=== PATIENT | female | born 1985 | race Caucasian/White ===

== ENCOUNTER 2017-07-08 10:29 | Emergency (ER) | payer OTHER ==
[~2017-07-08] VITALS: Ht 170.2 cm; Wt 72.1 kg
[~2017-07-08 10:29] MED LIST: ALPR-475 PO; CHOL5000 PO; DOCU-131 PO; ESCI20TA10 PO; HYDR-3237 PO; IBUP-1222 PO; LORA-446 PO; MULT-26 PO; NITR100C6 PO; OMEP10CA4 PO; ONDA4TAB13 PO
[2017-07-08 11:16] LABS: HCG UR LOT HCG7030192
[2017-07-08 11:25] LABS: HEMATOCRIT 29.9 % (34.6-47.8); HEMOGLOBIN 10.5 g/dL (11.7-16.4)
[2017-07-08 11:31] LABS: ASPARTATE AMINO TRANSFERASE 355 U/L (15-37); BLOOD UREA NITROGEN 11 mg/dL (7-18)
[2017-07-08] MEDS ORDERED: SERT50TA PO (11:33)
[2017-07-08 11:44] LABS: HCG UR OBC PASS
[2017-07-08] MEDS ORDERED: morphine SULFATE 10 MG/ML, 1ML ONE (12:18)
[2017-07-08] MEDS ORDERED: morphine SULFATE 10 MG/ML, 1ML IVPush ONE (12:30)
[2017-07-08 13:40] VITALS: BP 90/57
== END 2017-07-08 13:51 | disposition home or self-care (01) ==
LOC: ED 10:50
DX: H54.3 Unqualified visual loss, both eyes (principal); R10.84 Generalized abdominal pain; D68.4 Acquired coagulation factor deficiency; D64.9 Anemia, unspecified; E83.51 Hypocalcemia; E16.2 Hypoglycemia, unspecified; R17 Unspecified jaundice; E87.1 Hypo-osmolality and hyponatremia; K21.9 Gastro-esophageal reflux disease without esophagitis; Z90.49 Acquired absence of other specified parts of digestive tract; Z90.710 Acquired absence of both cervix and uterus
CPT/HCPCS: 36415; 70450; 80053; 81001; 81025; 83690; 85025; 85610; 87086; 96374; 99285; J2270

== ENCOUNTER 2017-07-13 15:37 | Inpatient (IN) | payer OTHER ==
[~2017-07-13] VITALS: Ht 170.2 cm; Wt 87.5 kg
[~2017-07-13 15:37] MED LIST changes: +SERT50TA PO
[2017-07-13] MEDS ORDERED: ONDANSETRON 2MG/ML, 2ML IVPush ONE (16:00)
[2017-07-13] MEDS ORDERED: SODIUM CHLORIDE 0.9% 1,000ML IVBOLUS ONE ×2 (16:00→21:00)
[2017-07-13 16:30] LABS: HEMATOCRIT 27.1 % (34.6-47.8); HEMOGLOBIN 9.5 g/dL (11.7-16.4); WHITE BLOOD COUNT 7.8 x10^3/uL (3.4-10)
[2017-07-13 16:36] LABS: BLOOD UREA NITROGEN 25 mg/dL (7-18)
[2017-07-13 16:40] LABS: ASPARTATE AMINO TRANSFERASE 126 U/L (15-37)
[2017-07-13] MEDS: PANTOPRAZOLE 80 MG in SODIUM CHLORIDE 0.9% 50 ML IVPB ONE ×2 (17:11→20:29)
[2017-07-13] MEDS: PANTOPRAZOLE 80 MG in SODIUM CHLORIDE 0.9% 100 ML IV SCH ×3 (17:11→22:00)
[2017-07-13] MEDS ORDERED: morphine SULFATE 10 MG/ML, 1ML ONE (17:17)
[2017-07-13] MEDS ORDERED: ONDANSETRON 2MG/ML, 2ML ONE (17:18)
[2017-07-13] MEDS ORDERED: MORPHINE SULFATE 4 MG/ML, 1ML IVPush ONE (17:30)
[2017-07-13 18:25] LABS: FERRITIN 1733.8 ng/mL (8-252); TOTAL IRON BINDING CAPACITY 70 mcg/dL (250-450)
[2017-07-13 18:46] LABS: ACETAMINOPHEN 17 mcg/mL (10-30)
[2017-07-13] MEDS: SODIUM CHLORIDE 0.9% 1,000 ML IV SCH ×4 (19:03→23:37)
[2017-07-13 19:15] VITALS: BP 90/48
[2017-07-13] MEDS ORDERED: HEPARIN 5,000 UNITS/ML, 1ML SQ SCH (19:30)
[2017-07-13] MEDS ORDERED: ACETAMINOPHEN 325 MG TABLET PO PRN (19:30)
[2017-07-13] MEDS: LORazepam 1MG TABLET PO PRN (19:48)
[2017-07-13] MEDS ORDERED: ALBUMIN HUMAN 5% 250 ML IV ONE (21:00)
[2017-07-13] MEDS ORDERED: PHYTONADIONE 10 MG/ML, 1ML SQ ONE (21:00)
[2017-07-13] MEDS: CEFDINIR 300 MG CAPSULE PO SCH (21:50)
[2017-07-13] MEDS: morphine SULFATE 10 MG/ML, 1ML IVPush PRN (22:32)
[2017-07-14] MEDS: prednisOLONE 15 MG/5 ML ORAL SOLN PO SCH ×2 (00:34→08:04)
[2017-07-14 00:38] VITALS: BP 90/49
[2017-07-14] MEDS: morphine SULFATE 10 MG/ML, 1ML IVPush PRN ×3 (03:17→13:14)
[2017-07-14 05:36] LABS: HEMOGLOBIN 7.4 g/dL (11.7-16.4); WHITE BLOOD COUNT 3.1 x10^3/uL (3.4-10)
[2017-07-14 05:41] LABS: BLOOD UREA NITROGEN 22 mg/dL (7-18)
[2017-07-14 05:43] LABS: HEMATOCRIT 21.2 % (34.6-47.8)
[2017-07-14 05:46] LABS: ASPARTATE AMINO TRANSFERASE 87 U/L (15-37)
[2017-07-14] MEDS ORDERED: PANTOPROZOLE 40MG TABLET PO SCH ×2 (07:30)
[2017-07-14] MEDS ORDERED: prednisOLONE 15 MG/5 ML ORAL SOLN PO SCH (08:00)
[2017-07-14] MEDS: ONDANSETRON ODT 4 MG PO PRN ×3 (08:03→19:22)
[2017-07-14] MEDS: CEFDINIR 300 MG CAPSULE PO SCH ×2 (08:03→21:41)
[2017-07-14] MEDS: LORazepam 1MG TABLET PO PRN ×3 (08:03→21:41)
[2017-07-14] MEDS: SODIUM CHLORIDE 0.9% 1,000 ML IV SCH ×2 (08:12→21:43)
[2017-07-14 08:18] VITALS: BP 96/58
[2017-07-14] MEDS: PANTOPRAZOLE 80 MG in SODIUM CHLORIDE 0.9% 100 ML IV SCH ×2 (08:34→18:36)
[2017-07-14] MEDS: THIAMINE 100MG TABLET PO SCH (09:50)
[2017-07-14 14:57] VITALS: BP 95/57
[2017-07-14] MEDS: LACTULOSE 20 GM/30 ML UDC PO SCH ×2 (16:12→21:41)
[2017-07-14 20:00] VITALS: BP 90/54
[2017-07-15 02:05] VITALS: BP 92/48
[2017-07-15] MEDS: SODIUM CHLORIDE 0.9% 1,000 ML IV SCH (05:01)
[2017-07-15] MEDS: PANTOPRAZOLE 80 MG in SODIUM CHLORIDE 0.9% 100 ML IV SCH ×2 (05:01→14:37)
[2017-07-15 06:17] LABS: HEMOGLOBIN 7.3 g/dL (11.7-16.4); WHITE BLOOD COUNT 6.4 x10^3/uL (3.4-10)
[2017-07-15 06:19] LABS: ASPARTATE AMINO TRANSFERASE 75 U/L (15-37); BLOOD UREA NITROGEN 26 mg/dL (7-18)
[2017-07-15 06:33] LABS: HEMATOCRIT 21.9 % (34.6-47.8)
[2017-07-15] MEDS ORDERED: POTASSIUM CHLORIDE 20 MEQ in SODIUM CHLORIDE 0.9% 250 ML IV ONE (07:00)
[2017-07-15 07:11] LABS: ANISOCYTOSIS 1+; TARGET CELLS 1+
[2017-07-15] MEDS: NS + 20MEQ KCL 1,000 ML IV SCH ×2 (07:52→16:44)
[2017-07-15] MEDS: CEFDINIR 300 MG CAPSULE PO SCH ×2 (07:53→21:14)
[2017-07-15] MEDS: THIAMINE 100MG TABLET PO SCH (07:53)
[2017-07-15] MEDS: LACTULOSE 20 GM/30 ML UDC PO SCH ×4 (07:53→21:14)
[2017-07-15] MEDS: prednisOLONE 15 MG/5 ML ORAL SOLN PO SCH (07:53)
[2017-07-15 08:35] VITALS: BP 92/52
[2017-07-15] MEDS: morphine SULFATE 10 MG/ML, 1ML IVPush PRN (09:28)
[2017-07-15] MEDS ORDERED: SODIUM PHOSPHATE 10 MMOL in SODIUM CHLORIDE 0.9% 500 ML IV ONE (09:30)
[2017-07-15 14:59] VITALS: BP 95/58
[2017-07-15 19:08] VITALS: BP 92/60
[2017-07-16] MEDS: NS + 20MEQ KCL 1,000 ML IV SCH ×2 (00:41→13:07)
[2017-07-16] MEDS: LORazepam 1MG TABLET PO PRN (00:41)
[2017-07-16 02:03] VITALS: BP 92/50
[2017-07-16] MEDS: PANTOPRAZOLE 80 MG in SODIUM CHLORIDE 0.9% 100 ML IV SCH ×2 (02:08→13:38)
[2017-07-16] MEDS: LACTULOSE 20 GM/30 ML UDC PO SCH ×4 (05:30→21:12)
[2017-07-16 06:28] LABS: HEMOGLOBIN 7.4 g/dL (11.7-16.4); WHITE BLOOD COUNT 5.3 x10^3/uL (3.4-10)
[2017-07-16 06:35] LABS: HEMATOCRIT 21.5 % (34.6-47.8)
[2017-07-16 06:49] LABS: DIFF TOTAL CELLS COUNTED 100 CELL DIFF
[2017-07-16 06:52] LABS: VERIFY COUNTS? YES
[2017-07-16 06:53] LABS: ANISOCYTOSIS 1+; TARGET CELLS 1+
[2017-07-16 06:58] LABS: BLOOD UREA NITROGEN 26 mg/dL (7-18)
[2017-07-16 07:01] LABS: ASPARTATE AMINO TRANSFERASE 63 U/L (15-37)
[2017-07-16] MEDS ORDERED: POTASSIUM PHOSPHATE 44 MEQ in SODIUM CHLORIDE 0.9% 500 ML IV ONE (08:30)
[2017-07-16 09:40] VITALS: BP 81/49
[2017-07-16] MEDS ORDERED: MIDAZOLAM 1 MG/ML, 5ML ONE (10:38)
[2017-07-16] MEDS ORDERED: FENTANYL PF 100 MCG/2ML ONE (10:38)
[2017-07-16] MEDS ORDERED: DIPHENHYDRAMINE 50 MG/ML, 1ML ONE (10:38)
[2017-07-16] MEDS ORDERED: SODIUM CHLORIDE 0.9%, 500ML IVBOLUS ONE ×2 (12:30→17:00)
[2017-07-16] MEDS: prednisOLONE 15 MG/5 ML ORAL SOLN PO SCH (13:06)
[2017-07-16] MEDS: THIAMINE 100MG TABLET PO SCH (13:07)
[2017-07-16] MEDS: CEFDINIR 300 MG CAPSULE PO SCH ×2 (13:07→21:12)
[2017-07-16 14:14] VITALS: BP 93/56
[2017-07-16 20:13] VITALS: BP_SYST 83; BP_SYST 87; BP_DIAS 46; BP_DIAS 52
[2017-07-17] MEDS: LORazepam 1MG TABLET PO PRN ×3 (00:15→21:48)
[2017-07-17] MEDS: NS + 20MEQ KCL 1,000 ML IV SCH ×3 (00:15→21:14)
[2017-07-17] MEDS: PANTOPRAZOLE 80 MG in SODIUM CHLORIDE 0.9% 100 ML IV SCH ×3 (00:15→21:14)
[2017-07-17 02:00] VITALS: BP 91/52
[2017-07-17] MEDS: morphine SULFATE 10 MG/ML, 1ML IVPush PRN ×2 (02:43→22:17)
[2017-07-17 05:29] LABS: ASPARTATE AMINO TRANSFERASE 60 U/L (15-37); BLOOD UREA NITROGEN 22 mg/dL (7-18)
[2017-07-17 05:39] LABS: HEMOGLOBIN 7.6 g/dL (11.7-16.4); WHITE BLOOD COUNT 4.1 x10^3/uL (3.4-10)
[2017-07-17 05:45] LABS: HEMATOCRIT 21.8 % (34.6-47.8)
[2017-07-17 08:00] VITALS: BP 84/40
[2017-07-17 08:40] VITALS: BP 77/42
[2017-07-17] MEDS ORDERED: SODIUM CHLORIDE 0.9% 1,000ML IVBOLUS ONE (09:00)
[2017-07-17] MEDS: prednisOLONE 15 MG/5 ML ORAL SOLN PO SCH (09:00)
[2017-07-17] MEDS: LACTULOSE 20 GM/30 ML UDC PO SCH ×3 (09:01→21:14)
[2017-07-17] MEDS: THIAMINE 100MG TABLET PO SCH (09:01)
[2017-07-17] MEDS: CEFDINIR 300 MG CAPSULE PO SCH ×2 (09:01→21:14)
[2017-07-17] MEDS ORDERED: LACTULOSE 20 GM/30 ML UDC PO SCH (11:00)
[2017-07-17 15:23] VITALS: BP 89/49
[2017-07-17 20:00] VITALS: BP 96/64
[2017-07-17 22:09] VITALS: BP 96/64
[2017-07-18 00:48] VITALS: BP 92/50
[2017-07-18] MEDS: NS + 20MEQ KCL 1,000 ML IV SCH ×3 (05:17→21:20)
[2017-07-18] MEDS: LACTULOSE 20 GM/30 ML UDC PO SCH ×4 (05:17→21:04)
[2017-07-18 05:58] LABS: HEMATOCRIT 23.3 % (34.6-47.8); HEMOGLOBIN 8.1 g/dL (11.7-16.4); WHITE BLOOD COUNT 7.7 x10^3/uL (3.4-10)
[2017-07-18 06:06] LABS: ASPARTATE AMINO TRANSFERASE 65 U/L (15-37); BLOOD UREA NITROGEN 21 mg/dL (7-18)
[2017-07-18] MEDS: PANTOPRAZOLE 80 MG in SODIUM CHLORIDE 0.9% 100 ML IV SCH ×2 (06:40→17:07)
[2017-07-18 06:53] LABS: ANISOCYTOSIS 1+; HYPOCHROMIA 1+; TARGET CELLS 1+
[2017-07-18 07:13] VITALS: BP 89/46
[2017-07-18] MEDS ORDERED: OMEPRAZOLE 20 MG CAPSULE.DR PO SCH (07:30)
[2017-07-18] MEDS: OMEPRAZOLE 20 MG CAPSULE.DR PO SCH (09:28)
[2017-07-18] MEDS: THIAMINE 100MG TABLET PO SCH (09:28)
[2017-07-18] MEDS: prednisOLONE 15 MG/5 ML ORAL SOLN PO SCH (09:28)
[2017-07-18] MEDS: CEFDINIR 300 MG CAPSULE PO SCH ×2 (09:28→21:03)
[2017-07-18] MEDS: LORazepam 1MG TABLET PO PRN (12:13)
[2017-07-18 14:01] VITALS: BP 98/61
[2017-07-18 19:37] VITALS: BP 93/58
[2017-07-18] MEDS: ONDANSETRON ODT 4 MG PO PRN (21:20)
[2017-07-19] VITALS (7 sets, daily range): BP systolic 94–116; BP diastolic 55–76
[2017-07-19] MEDS: PANTOPRAZOLE 80 MG in SODIUM CHLORIDE 0.9% 100 ML IV SCH ×2 (02:54→14:12)
[2017-07-19 05:22] LABS: ASPARTATE AMINO TRANSFERASE 55 U/L (15-37); BLOOD UREA NITROGEN 18 mg/dL (7-18)
[2017-07-19 05:25] LABS: HEMOGLOBIN 7.1 g/dL (11.7-16.4); WHITE BLOOD COUNT 5.4 x10^3/uL (3.4-10)
[2017-07-19 05:29] LABS: HEMATOCRIT 20.8 % (34.6-47.8)
[2017-07-19] MEDS: NS + 20MEQ KCL 1,000 ML IV SCH (06:06)
[2017-07-19] MEDS: LACTULOSE 20 GM/30 ML UDC PO SCH (06:08)
[2017-07-19] MEDS: prednisOLONE 15 MG/5 ML ORAL SOLN PO SCH (09:11)
[2017-07-19] MEDS: OMEPRAZOLE 20 MG CAPSULE.DR PO SCH (09:11)
[2017-07-19] MEDS: THIAMINE 100MG TABLET PO SCH (09:11)
[2017-07-19] MEDS: CEFDINIR 300 MG CAPSULE PO SCH (09:11)
[2017-07-19] MEDS ORDERED: LACTULOSE 20 GM/30 ML UDC PO SCH (11:00)
[2017-07-19 16:05] LABS: HEMATOCRIT 23.6 % (34.6-47.8); HEMOGLOBIN 8.3 g/dL (11.7-16.4)
[2017-07-19] MEDS: LORazepam 1MG TABLET PO PRN ×2 (21:31→22:21)
[2017-07-19] MEDS: ONDANSETRON ODT 4 MG PO PRN (21:31)
[2017-07-19] MEDS: morphine SULFATE 10 MG/ML, 1ML IVPush PRN (22:21)
[2017-07-20] MEDS: PANTOPRAZOLE 80 MG in SODIUM CHLORIDE 0.9% 100 ML IV SCH ×2 (00:41→10:52)
[2017-07-20 02:00] VITALS: BP 95/62
[2017-07-20] MEDS: LORazepam 1MG TABLET PO PRN ×3 (05:16→14:23)
[2017-07-20] MEDS: THIAMINE 100MG TABLET PO SCH (07:51)
[2017-07-20] MEDS: OMEPRAZOLE 20 MG CAPSULE.DR PO SCH (07:51)
[2017-07-20] MEDS: prednisOLONE 15 MG/5 ML ORAL SOLN PO SCH (07:51)
[2017-07-20 07:52] VITALS: BP 104/63
[2017-07-20 08:05] LABS: BLOOD UREA NITROGEN 16 mg/dL (7-18)
[2017-07-20 08:09] LABS: ASPARTATE AMINO TRANSFERASE 53 U/L (15-37)
[2017-07-20 08:38] LABS: HEMATOCRIT 24.6 % (34.6-47.8); HEMOGLOBIN 8.6 g/dL (11.7-16.4); WHITE BLOOD COUNT 6.1 x10^3/uL (3.4-10)
[2017-07-20] MEDS: ONDANSETRON ODT 4 MG PO PRN (14:09)
[2017-07-20] MEDS: morphine SULFATE 10 MG/ML, 1ML IVPush PRN (14:31)
[2017-07-20 15:30] VITALS: BP 93/56
[2017-07-20] MEDS ORDERED: PRED20TA PO (16:33)
[2017-07-20] MEDS ORDERED: OMEP-110 PO (16:33)
[2017-07-20] MEDS ORDERED: FERR325T5 PO (16:38)
[2017-07-20] MEDS ORDERED: FLU VACC QS2017-18 (36MOS+) UP/PF 0.5 ML IM-VACC ONE (20:00)
== END 2017-07-20 18:28 | disposition home or self-care (01) | DRG 432 ==
LOC: ED 16:27 → EDIP 17:20 → 4WST 18:38
PROVIDERS: ADMIT Family Medicine; ATTEND Family Medicine
PROC: 30233N1 Transfusion of Nonautologous Red Blood Cells into Peripheral Vein, Percutaneous Approach (ICD-10-PCS; principal; 2017-07-19)
DX: K70.10 Alcoholic hepatitis without ascites (principal); K72.00 Acute and subacute hepatic failure without coma; K70.0 Alcoholic fatty liver; G93.40 Encephalopathy, unspecified; K83.0 Cholangitis; N17.9 Acute kidney failure, unspecified; E46 Unspecified protein-calorie malnutrition; D68.9 Coagulation defect, unspecified; N39.0 Urinary tract infection, site not specified; D69.6 Thrombocytopenia, unspecified; E86.0 Dehydration; D53.9 Nutritional anemia, unspecified; K74.60 Unspecified cirrhosis of liver; E11.9 Type 2 diabetes mellitus without complications; E83.119 Hemochromatosis, unspecified; F10.20 Alcohol dependence, uncomplicated; F17.210 Nicotine dependence, cigarettes, uncomplicated; F41.1 Generalized anxiety disorder; K21.0 Gastro-esophageal reflux disease with esophagitis; K59.00 Constipation, unspecified; K75.4 Autoimmune hepatitis; R04.0 Epistaxis; Z80.0 Family history of malignant neoplasm of digestive organs; Z80.1 Family history of malignant neoplasm of trachea, bronchus and lung; Z83.3 Family history of diabetes mellitus; Z90.49 Acquired absence of other specified parts of digestive tract; Z88.1 Allergy status to other antibiotic agents; Z88.8 Allergy status to other drugs, medicaments and biological substances; Z68.30 Body mass index [BMI] 30.0-30.9, adult
CPT/HCPCS: 36415; 76700; 80053; 80307; 81001; 82140; 82248; 82390; 82607; 82728; 83516; 83540; 83550; 83690; 83735; 84100; 85014; 85018; 85025; 85610; 86376; 86850; 86900; 86923; 87086; 90686; 93970; 96361; 96374; 96375; 99152; 99153; J2250; J2405; J3010; J3430; J3480; P9041; Q0162; C9113; G0479; J1200; J2270; J7030; J7040; J7050; J7510; P9016; P9045

== ENCOUNTER 2017-08-05 11:47 | Inpatient (IN) | payer OTHER ==
[~2017-08-05] VITALS: Ht 170.2 cm; Wt 93.9 kg
[2017-08-05] VITALS (9 sets, daily range): BP systolic 98–117; BP diastolic 62–80
[~2017-08-05 11:47] MED LIST changes: +FERR325T5 PO; +OMEP-110 PO; +PRED20TA PO
[2017-08-05] MEDS ORDERED: FURO20TA3 PO (12:36)
[2017-08-05] MEDS ORDERED: POTA99TA24 PO (12:36)
[2017-08-05] MEDS ORDERED: LACTULOSE 20 GM/30 ML UDC PO ONE (13:27)
[2017-08-05] MEDS ORDERED: SODIUM CHLORIDE FLUSH 10ML SYR IVF ONE (13:30)
[2017-08-05 14:05] LABS: ASPARTATE AMINO TRANSFERASE 125 U/L (15-37); BLOOD UREA NITROGEN 22 mg/dL (7-18)
[2017-08-05 14:32] LABS: HEMOGLOBIN 7.8 g/dL (11.7-16.4)
[2017-08-05 14:34] LABS: HEMATOCRIT 22.7 % (34.6-47.8)
[2017-08-05] MEDS ORDERED: NEOMYCIN SULFATE 500 MG TABLET PO ONE (14:38)
[2017-08-05 14:44] LABS: DIFF TOTAL CELLS COUNTED 100 CELL DIFF
[2017-08-05 14:45] LABS: ANISOCYTOSIS 2+
[2017-08-05] MEDS ORDERED: NS + 40MEQ KCL 1,000 ML IV ONE ×2 (14:45→14:53)
[2017-08-05 14:46] LABS: HYPOCHROMIA 1+
[2017-08-05 14:47] LABS: POIKILOCYTOSIS 1+; POLYCHROMASIA 1+
[2017-08-05 14:48] LABS: GIANT PLATELETS 1+; LARGE PLATELETS 1+
[2017-08-05 14:49] LABS: VERIFY COUNTS? YES
[2017-08-05] MEDS ORDERED: POTASSIUM CHLORIDE 20 MEQ TAB.ER.PRT ONE (14:53)
[2017-08-05] MEDS ORDERED: POTASSIUM CHLORIDE 20 MEQ TAB.ER.PRT PO ONE (15:00)
[2017-08-05] MEDS: LORazepam 1MG TABLET PO PRN (19:50)
[2017-08-05] MEDS: LACTULOSE 20 GM/30 ML UDC PO SCH (21:14)
[2017-08-05] MEDS: PENTOXIFYLLINE 400 MG TABLET.ER PO SCH (21:14)
[2017-08-05] MEDS: POTASSIUM CHLORIDE 40 MEQ in D5%-LACTATED RINGERS 1,000 ML IV SCH (23:15)
[2017-08-05] MEDS: CEFTRIAXONE PMX 2GM/50ML 50 ML IV SCH (23:15)
[2017-08-05 23:21] LABS: OCCBLD OBC PASS
[2017-08-05] MEDS: ONDANSETRON 2MG/ML, 2ML IVPush PRN (23:56)
[2017-08-06 04:00] VITALS: BP 104/72
[2017-08-06 06:32] VITALS: BP 104/72
[2017-08-06] MEDS: LACTULOSE 20 GM/30 ML UDC PO SCH ×4 (06:42→23:50)
[2017-08-06 07:00] VITALS: BP 109/74
[2017-08-06] MEDS: POTASSIUM CHLORIDE 40 MEQ in D5%-LACTATED RINGERS 1,000 ML IV SCH (07:30)
[2017-08-06 08:00] LABS: BLOOD UREA NITROGEN 22 mg/dL (7-18)
[2017-08-06 08:03] LABS: ASPARTATE AMINO TRANSFERASE 117 U/L (15-37)
[2017-08-06 08:05] LABS: HEMATOCRIT 29.1 % (34.6-47.8); HEMOGLOBIN 10.1 g/dL (11.7-16.4); WHITE BLOOD COUNT 13.6 x10^3/uL (3.4-10)
[2017-08-06] MEDS: ALBUMIN HUMAN 25% 100 ML IV SCH ×2 (08:30→15:41)
[2017-08-06] MEDS: PENTOXIFYLLINE 400 MG TABLET.ER PO SCH ×3 (08:30→23:50)
[2017-08-06] MEDS: LORazepam 1MG TABLET PO PRN (08:37)
[2017-08-06 08:59] LABS: DIFF TOTAL CELLS COUNTED 100 CELL DIFF
[2017-08-06 09:08] LABS: ANISOCYTOSIS 2+; VERIFY COUNTS? YES
[2017-08-06 09:10] LABS: ECHINOCYTES 1+; LARGE PLATELETS 1+; MICROCYTOSIS 1+
[2017-08-06] MEDS: FUROSEMIDE 40 MG/4 ML IV SCH ×3 (11:28→23:50)
[2017-08-06] MEDS: IBUPROFEN 200 MG TABLET PO PRN (11:28)
[2017-08-06] MEDS: OMEPRAZOLE 20 MG CAPSULE.DR PO SCH (11:28)
[2017-08-06] MEDS: POTASSIUM CHLORIDE 20 MEQ TAB.ER.PRT PO SCH ×3 (11:28→17:14)
[2017-08-06 13:30] VITALS: BP 109/73
[2017-08-06] MEDS: ONDANSETRON 2MG/ML, 2ML IVPush PRN (13:56)
[2017-08-06 18:33] VITALS: BP 108/74
[2017-08-06] MEDS: CEFTRIAXONE PMX 2GM/50ML 50 ML IV SCH (23:50)
[2017-08-07] MEDS: ALBUMIN HUMAN 25% 100 ML IV SCH ×4 (01:05→19:00)
[2017-08-07 01:13] VITALS: BP 99/63
[2017-08-07] MEDS: IBUPROFEN 200 MG TABLET PO PRN (02:35)
[2017-08-07] MEDS: FUROSEMIDE 40 MG/4 ML IV SCH ×2 (02:35→10:17)
[2017-08-07] MEDS: LACTULOSE 20 GM/30 ML UDC PO SCH ×3 (06:38→21:19)
[2017-08-07 06:46] LABS: BLOOD UREA NITROGEN 18 mg/dL (7-18)
[2017-08-07 06:49] LABS: ASPARTATE AMINO TRANSFERASE 73 U/L (15-37)
[2017-08-07 06:54] VITALS: BP 94/57
[2017-08-07] MEDS: PENTOXIFYLLINE 400 MG TABLET.ER PO SCH ×3 (08:36→21:19)
[2017-08-07] MEDS: OMEPRAZOLE 20 MG CAPSULE.DR PO SCH (08:36)
[2017-08-07] MEDS: POTASSIUM CHLORIDE 20 MEQ TAB.ER.PRT PO SCH ×3 (10:17→18:25)
[2017-08-07] MEDS: LORazepam 1MG TABLET PO PRN (12:51)
[2017-08-07 13:41] VITALS: BP 95/60
[2017-08-07 19:48] VITALS: BP 95/62
[2017-08-07] MEDS: RIFAXIMIN 550 MG TABLET PO SCH (21:19)
[2017-08-08] VITALS (9 sets, daily range): BP systolic 91–110; BP diastolic 52–78
[2017-08-08] MEDS: CEFTRIAXONE PMX 2GM/50ML 50 ML IV SCH (00:05)
[2017-08-08] MEDS: LORazepam 1MG TABLET PO PRN ×2 (00:11→20:33)
[2017-08-08] MEDS: ALBUMIN HUMAN 25% 100 ML IV SCH ×4 (03:15→22:49)
[2017-08-08 07:14] LABS: ASPARTATE AMINO TRANSFERASE 63 U/L (15-37); BLOOD UREA NITROGEN 20 mg/dL (7-18)
[2017-08-08] MEDS: FUROSEMIDE 20 MG TABLET PO SCH (08:12)
[2017-08-08] MEDS: PENTOXIFYLLINE 400 MG TABLET.ER PO SCH ×3 (08:12→20:33)
[2017-08-08] MEDS: LACTULOSE 20 GM/30 ML UDC PO SCH ×2 (08:12→20:33)
[2017-08-08] MEDS: RIFAXIMIN 550 MG TABLET PO SCH ×2 (08:12→20:33)
[2017-08-08] MEDS: OMEPRAZOLE 20 MG CAPSULE.DR PO SCH (08:13)
[2017-08-08] MEDS: SPIRONOLACTONE 100 MG TABLET PO SCH (08:13)
[2017-08-08 16:36] LABS: HEMATOCRIT 27.7 % (34.6-47.8); HEMOGLOBIN 9.6 g/dL (11.7-16.4)
[2017-08-08] MEDS: MOVIPREP POWDER 1 PREP KIT PO SCH (18:22)
[2017-08-08 23:03] LABS: HEMATOCRIT 27.2 % (34.6-47.8); HEMOGLOBIN 9.5 g/dL (11.7-16.4)
[2017-08-09] MEDS: CEFTRIAXONE PMX 2GM/50ML 50 ML IV SCH (00:17)
[2017-08-09 01:26] VITALS: BP 94/61
[2017-08-09] MEDS: MOVIPREP POWDER 1 PREP KIT PO SCH ×2 (05:47→20:29)
[2017-08-09] MEDS: ALBUMIN HUMAN 25% 100 ML IV SCH (05:48)
[2017-08-09 05:53] LABS: HEMATOCRIT 25.9 % (34.6-47.8); HEMOGLOBIN 9.1 g/dL (11.7-16.4)
[2017-08-09] MEDS ORDERED: DIPHENHYDRAMINE 50 MG/ML, 1ML ONE (08:30)
[2017-08-09] MEDS ORDERED: MIDAZOLAM 1 MG/ML, 5ML ONE (08:35)
[2017-08-09] MEDS ORDERED: FENTANYL PF 100 MCG/2ML ONE (08:35)
[2017-08-09 10:27] LABS: BLOOD UREA NITROGEN 20 mg/dL (7-18)
[2017-08-09 10:31] LABS: ASPARTATE AMINO TRANSFERASE 54 U/L (15-37)
[2017-08-09] MEDS: RIFAXIMIN 550 MG TABLET PO SCH ×2 (10:38→20:31)
[2017-08-09] MEDS: LACTULOSE 20 GM/30 ML UDC PO SCH ×2 (10:38→20:28)
[2017-08-09] MEDS: FUROSEMIDE 20 MG TABLET PO SCH (10:38)
[2017-08-09] MEDS: PENTOXIFYLLINE 400 MG TABLET.ER PO SCH ×3 (10:39→20:29)
[2017-08-09] MEDS: OMEPRAZOLE 20 MG CAPSULE.DR PO SCH (10:39)
[2017-08-09] MEDS: SPIRONOLACTONE 100 MG TABLET PO SCH (10:39)
[2017-08-09 15:50] VITALS: BP 91/53
[2017-08-09] MEDS ORDERED: PHYTONADIONE 5 MG TABLET PO ONE (18:30)
[2017-08-09] MEDS ORDERED: POTASSIUM CHLORIDE 20 MEQ TAB.ER.PRT PO ONE (18:30)
[2017-08-09 19:26] VITALS: BP 90/55
[2017-08-09] MEDS: LORazepam 1MG TABLET PO PRN (20:36)
[2017-08-10] MEDS: CEFTRIAXONE PMX 2GM/50ML 50 ML IV SCH (00:08)
[2017-08-10 02:57] VITALS: BP 106/70
[2017-08-10 06:58] LABS: BLOOD UREA NITROGEN 25 mg/dL (7-18)
[2017-08-10 07:01] LABS: ASPARTATE AMINO TRANSFERASE 56 U/L (15-37)
[2017-08-10 07:43] VITALS: BP 92/58
[2017-08-10] MEDS ORDERED: LORazepam 1MG TABLET PO PRN (08:00)
[2017-08-10] MEDS ORDERED: LORazepam 0.5MG TABLET PO PRN (08:00)
[2017-08-10] MEDS: SPIRONOLACTONE 100 MG TABLET PO SCH (08:25)
[2017-08-10] MEDS: OMEPRAZOLE 20 MG CAPSULE.DR PO SCH (08:25)
[2017-08-10] MEDS: PENTOXIFYLLINE 400 MG TABLET.ER PO SCH (08:25)
[2017-08-10] MEDS: LACTULOSE 20 GM/30 ML UDC PO SCH (08:26)
[2017-08-10] MEDS: RIFAXIMIN 550 MG TABLET PO SCH (08:26)
[2017-08-10] MEDS: FUROSEMIDE 20 MG TABLET PO SCH (08:26)
[2017-08-10] MEDS: MOVIPREP POWDER 1 PREP KIT PO SCH (08:26)
[2017-08-10] MEDS: LORazepam 1MG TABLET PO PRN (08:28)
[2017-08-10] MEDS ORDERED: POTA20TA14 PO (11:16)
[2017-08-10] MEDS ORDERED: MAGN71.5 PO (11:16)
[2017-08-10] MEDS ORDERED: RIFA550T4 PO (11:16)
[2017-08-10] MEDS ORDERED: SPIR100T PO (11:16)
[2017-08-10] MEDS ORDERED: PHYT100T PO (11:16)
[2017-08-10] MEDS ORDERED: FURO20TA3 PO (11:16)
[2017-08-11 09:07] LABS: COMPLEMENT C3 97 mg/dL (82-167); COMPLEMENT C4 14 mg/dL (14-44); INTERMYOFIBRILLAR AB Negative (Neg:<1:20); MITOCHONDRIAL (M2) AB 4.5 Units (0.0-20.0); PARIETAL CELL AB 2.8 Units (0.0-20.0); RA LATEX TURBIDITY <10.0 IU/mL (0.0-13.9); SARCOLEMMA AB Negative (Neg:<1:20); STRIATION AB Negative (Neg:<1:40); THYROID PEROXIDASE (TPO) AB 13 IU/mL (0-34)
== END 2017-08-10 11:54 | disposition home or self-care (01) | DRG 433 ==
LOC: ED 13:51 → EDIP 14:49 → 3NE 16:33
PROVIDERS: ADMIT Internal Medicine; ATTEND Internal Medicine
PROC: 0DBH8ZZ Excision of Cecum, Via Natural or Artificial Opening Endoscopic (ICD-10-PCS; principal; 2017-08-05)
PROC: 30233N1 Transfusion of Nonautologous Red Blood Cells into Peripheral Vein, Percutaneous Approach (ICD-10-PCS; 2017-08-05)
DX: K70.30 Alcoholic cirrhosis of liver without ascites (principal); N39.0 Urinary tract infection, site not specified; K70.10 Alcoholic hepatitis without ascites; D69.6 Thrombocytopenia, unspecified; D68.9 Coagulation defect, unspecified; E44.0 Moderate protein-calorie malnutrition; K92.2 Gastrointestinal hemorrhage, unspecified; D64.9 Anemia, unspecified; D12.0 Benign neoplasm of cecum; K70.40 Alcoholic hepatic failure without coma; K64.0 First degree hemorrhoids; E87.6 Hypokalemia; F10.20 Alcohol dependence, uncomplicated; F41.1 Generalized anxiety disorder; F32.9 Major depressive disorder, single episode, unspecified; M54.9 Dorsalgia, unspecified; D36.9 Benign neoplasm, unspecified site; K21.0 Gastro-esophageal reflux disease with esophagitis; Z80.0 Family history of malignant neoplasm of digestive organs; Z90.710 Acquired absence of both cervix and uterus; Z68.32 Body mass index [BMI] 32.0-32.9, adult; Z98.84 Bariatric surgery status; Z90.721 Acquired absence of ovaries, unilateral; Z88.5 Allergy status to narcotic agent; Z83.3 Family history of diabetes mellitus; Z90.49 Acquired absence of other specified parts of digestive tract
CPT/HCPCS: 36415; 36430; 80053; 81001; 82140; 82272; 82390; 83516; 83605; 83690; 83735; 84702; 85014; 85018; 85025; 85610; 85730; 86038; 86160; 86225; 86235; 86255; 86256; 86376; 86431; 86704; 86706; 86708; 86803; 86850; 86900; 86923; 87086; 87340; 88305; 93005; 99152; 99153; J0696; J1940; J2250; J2405; J3010; J3480; P9047; J1200; J7121; P9016

== ENCOUNTER 2017-09-05 19:52 | Inpatient (IN) | payer OTHER ==
[~2017-09-05] VITALS: Ht 170.2 cm; Wt 79.8 kg
[~2017-09-05 19:52] MED LIST changes: +FURO20TA3 PO; +MAGN71.5 PO; +PHYT100T PO; +POTA20TA14 PO; +POTA99TA24 PO; +RIFA550T4 PO; +SPIR100T PO
[2017-09-05 20:54] LABS: MEAN CORPUSCULAR HEMOGLOBIN 34.2 pg (27.0-34.8); MEAN CORPUSCULAR HGB CONC 35.6 g/dL (32.4-35.8); MEAN CORPUSCULAR VOLUME 95.9 fL (80-100); RED BLOOD COUNT 2.24 x10^6/uL (3.82-5.3); RED CELL DISTRIBUTION WIDTH 22.8 % (9.6-15.2)
[2017-09-05 20:56] LABS: INTERNATIONAL NORMALIZED RATIO 2.16 (0.93-1.1); PROTHROMBIN TIME 22.1 Seconds (9.6-11.5)
[2017-09-05] MEDS ORDERED: SODIUM CHLORIDE 0.9% 1,000ML IVBOLUS ONE (21:00)
[2017-09-05] MEDS ORDERED: SODIUM CHLORIDE FLUSH 10ML SYR IVF ONE (21:00)
[2017-09-05 21:07] LABS: ALANINE AMINOTRANSFERASE 30 U/L (12-78); ANION GAP 9 mmol/L (5-15); CALCIUM 9.2 mg/dL (8.5-10.1); CHLORIDE 110 mmol/L (98-107)
[2017-09-05 21:09] LABS: CREATININE 1.79 mg/dL (0.55-1.02)
[2017-09-05 21:13] LABS: MEAN PLATELET VOLUME 10.1 fL (7.4-10.4); PLATELET COUNT 193 x10^3/uL (130-400)
[2017-09-05 21:14] LABS: MD YES
[2017-09-05 21:18] LABS: ALKALINE PHOSPHATASE 101 U/L (45-117); BAND#(MANUAL) 0.13 x10^3/uL; BANDS%(MANUAL) 1 % (0-7); EOS#(MANUAL) 0.26 x10^3/uL (0.0-0.4); EOS% (MANUAL) 2 % (1-7); LYMPH#(MANUAL) 1.69 x10^3/uL (1-3.4); LYMPHS% (MANUAL) 13 % (22-44); MONOS#(MANUAL) 1.82 x10^3/uL (0.3-2.7); MONOS% (MANUAL) 14 % (2-9); SEGS% (MANUAL) 70 % (42-75)
[2017-09-05 21:20] LABS: ANISOCYTOSIS 2+; BILIRUBIN,TOTAL 26.9 mg/dL (0.2-1.0); HYPOCHROMIA 1+; MICROCYTOSIS 1+; TOTAL PROTEIN 5.6 g/dL (6.4-8.2)
[2017-09-05 21:21] LABS: ECHINOCYTES 2+
[2017-09-05 21:22] LABS: <PLATELET ESTIMATE> ADEQUATE; LARGE PLATELETS 1+; SCHISTOCYTES 1+
[2017-09-05] MEDS ORDERED: SODIUM CHLORIDE FLUSH 10ML SYR IVF PRN (22:30)
[2017-09-05 22:40] VITALS: BP 82/42
[2017-09-05 22:57] VITALS: BP 115/69
[2017-09-05 23:16] VITALS: BP 89/35
[2017-09-05 23:26] VITALS: BP 86/43
[2017-09-05] MEDS ORDERED: ONDANSETRON 2MG/ML, 2ML IVPush PRN (23:30)
[2017-09-06 00:17] VITALS: BP 99/57
[2017-09-06 00:23] VITALS: BP 102/63
[2017-09-06 00:53] VITALS: BP 101/49
[2017-09-06 01:07] VITALS: BP 108/56
[2017-09-06] MEDS: HYDROmorphone 2 MG/ML, 1ML IVPush PRN (01:26)
[2017-09-06] MEDS: NOREPINEPHRINE 4 MG in SODIUM CHLORIDE 0.9% 246 ML IV PRN ×3 (02:21→22:43)
[2017-09-06] MEDS: POTASSIUM CHLORIDE 20 MEQ in SODIUM CHLORIDE 0.45% 1,000 ML IV SCH ×2 (02:55→12:23)
[2017-09-06] MEDS: LORazepam 2 MG/ML, 1ML IVPush PRN ×4 (03:32→22:00)
[2017-09-06 05:40] LABS: INTERNATIONAL NORMALIZED RATIO 2.39 (0.93-1.1); PROTHROMBIN TIME 24.4 Seconds (9.6-11.5)
[2017-09-06 05:44] LABS: ALANINE AMINOTRANSFERASE 25 U/L (12-78); ALBUMIN 1.8 g/dL (3.4-5.0); ANION GAP 8 mmol/L (5-15); CALCIUM 8.3 mg/dL (8.5-10.1); CHLORIDE 114 mmol/L (98-107); MEAN CORPUSCULAR HEMOGLOBIN 33.6 pg (27.0-34.8); MEAN CORPUSCULAR VOLUME 93.5 fL (80-100); RED BLOOD COUNT 2.66 x10^6/uL (3.82-5.3); RED CELL DISTRIBUTION WIDTH 20.1 % (9.6-15.2)
[2017-09-06 06:00] LABS: ALKALINE PHOSPHATASE 91 U/L (45-117)
[2017-09-06 06:11] LABS: PREALBUMIN < 3.0 mg/dL (20.0-40.0); TOTAL PROTEIN 4.8 g/dL (6.4-8.2)
[2017-09-06 06:12] LABS: BILIRUBIN,TOTAL 24.6 mg/dL (0.2-1.0)
[2017-09-06 06:23] LABS: MD YES; MEAN PLATELET VOLUME 9.9 fL (7.4-10.4); PLATELET COUNT 162 x10^3/uL (130-400)
[2017-09-06 06:25] LABS: BAND#(MANUAL) 0.27 x10^3/uL; BANDS%(MANUAL) 2 % (0-7); BASOS#(MANUAL) 0.14 x10^3/uL (0-0.1); BASOS% (MANUAL) 1 % (0-1); LYMPHS% (MANUAL) 20 % (22-44); MONOS#(MANUAL) 1.08 x10^3/uL (0.3-2.7); MONOS% (MANUAL) 8 % (2-9); SEG#(MANUAL) 9.32 x10^3/uL (1.8-6.8); SEGS% (MANUAL) 69 % (42-75)
[2017-09-06 06:26] LABS: ACANTHOCYTES 1+; ANISOCYTOSIS 2+; ECHINOCYTES 1+; HYPOCHROMIA 1+; MICROCYTOSIS 1+; SCHISTOCYTES 1+
[2017-09-06 06:27] LABS: <PLATELET ESTIMATE> ADEQUATE; <PLT MORPHOLOGY> NORMAL PLT MORPH
[2017-09-06] MEDS ORDERED: LIDOCAINE 1%, 10ML ONE (08:41)
[2017-09-06] MEDS: ESOMEPRAZOLE 40 MG IV IVPush SCH (09:04)
[2017-09-06 10:26] LABS: CELLS COUNTED 92
[2017-09-06] MEDS ORDERED: LACTULOSE 10 GM/15 ML UDC NG PRN (11:30)
[2017-09-06 12:16] LABS: MICROSCOPIC INDICATED
[2017-09-06 12:26] LABS: CULTURE INDICATED? NO
[2017-09-06] MEDS: RIFAXIMIN 550 MG TABLET NG SCH ×3 (12:32→21:00)
[2017-09-06] MEDS ORDERED: D5%-0.9% NACL 1,000 ML IV SCH ×2 (18:30)
[2017-09-06] MEDS ORDERED: DIPHENHYDRAMINE 50 MG/ML, 1ML ONE (22:39)
[2017-09-06] MEDS ORDERED: DIPHENHYDRAMINE 50 MG/ML, 1ML IVPush PRN (23:00)
[2017-09-07] MEDS: HYDROmorphone 2 MG/ML, 1ML IVPush PRN (00:33)
[2017-09-07 03:48] LABS: MEAN CORPUSCULAR HEMOGLOBIN 33.6 pg (27.0-34.8); MEAN CORPUSCULAR HGB CONC 35.4 g/dL (32.4-35.8); MEAN PLATELET VOLUME 9.3 fL (7.4-10.4); PLATELET COUNT 192 x10^3/uL (130-400); RED BLOOD COUNT 2.78 x10^6/uL (3.82-5.3); RED CELL DISTRIBUTION WIDTH 20.6 % (9.6-15.2)
[2017-09-07 03:54] LABS: ALANINE AMINOTRANSFERASE 23 U/L (12-78); ALBUMIN 1.6 g/dL (3.4-5.0); ANION GAP 8 mmol/L (5-15); CALCIUM 8.4 mg/dL (8.5-10.1); CHLORIDE 114 mmol/L (98-107)
[2017-09-07 04:00] VITALS: BP 110/50
[2017-09-07 04:05] LABS: ALKALINE PHOSPHATASE 88 U/L (45-117)
[2017-09-07 04:17] LABS: BILIRUBIN,TOTAL 23.1 mg/dL (0.2-1.0); CREATININE 1.27 mg/dL (0.55-1.02)
[2017-09-07 04:18] LABS: TOTAL PROTEIN 4.6 g/dL (6.4-8.2)
[2017-09-07 04:25] LABS: BASOPHILS % (AUTO) 1 % (0-1); EOSINOPHILS # (AUTO) 0.32 x10^3/uL (0-0.4); EOSINOPHILS % (AUTO) 2 % (1-7); LYMPHOCYTES # (AUTO) 2.02 x10^3/uL (1-3.4); LYMPHOCYTES % (AUTO) 11 % (22-44); MD SCAN; MONOCYTES # (AUTO) 1.76 x10^3/uL (0.2-0.8); MONOCYTES % (AUTO) 9 % (2-9); NEUTROPHILS % (AUTO) 78 % (42-75)
[2017-09-07] MEDS: RIFAXIMIN 550 MG TABLET NG SCH (07:35)
[2017-09-07] MEDS: ESOMEPRAZOLE 40 MG IV IVPush SCH (07:44)
[2017-09-07] MEDS: NOREPINEPHRINE 4 MG in SODIUM CHLORIDE 0.9% 246 ML IV PRN (07:44)
[2017-09-07] MEDS ORDERED: CYPR2SYR5 PO (09:32)
== END 2017-09-07 12:02 | disposition hospice, home (50) | DRG 441 ==
LOC: ED 20:35 → EDIP 22:28 → CCU 09-06 01:14
PROVIDERS: ADMIT Family Medicine; ATTEND Family Medicine
PROC: 05HM33Z Insertion of Infusion Device into Right Internal Jugular Vein, Percutaneous Approach (ICD-10-PCS; principal; 2017-09-05)
PROC: 30233N1 Transfusion of Nonautologous Red Blood Cells into Peripheral Vein, Percutaneous Approach (ICD-10-PCS; 2017-09-05)
PROC: 0DH673Z Insertion of Infusion Device into Stomach, Via Natural or Artificial Opening (ICD-10-PCS; 2017-09-06)
PROC: 0T9B70Z Drainage of Bladder with Drainage Device, Via Natural or Artificial Opening (ICD-10-PCS; 2017-09-06)
PROC: 0W9G3ZZ Drainage of Peritoneal Cavity, Percutaneous Approach (ICD-10-PCS; 2017-09-06)
DX: K72.90 Hepatic failure, unspecified without coma (principal); G93.41 Metabolic encephalopathy; N17.9 Acute kidney failure, unspecified; E46 Unspecified protein-calorie malnutrition; I95.9 Hypotension, unspecified; E72.20 Disorder of urea cycle metabolism, unspecified; E11.22 Type 2 diabetes mellitus with diabetic chronic kidney disease; K70.10 Alcoholic hepatitis without ascites; N18.6 End stage renal disease; K70.41 Alcoholic hepatic failure with coma; D62 Acute posthemorrhagic anemia; Z80.0 Family history of malignant neoplasm of digestive organs; E86.0 Dehydration; Z83.3 Family history of diabetes mellitus; D63.8 Anemia in other chronic diseases classified elsewhere; Z68.27 Body mass index [BMI] 27.0-27.9, adult; F10.20 Alcohol dependence, uncomplicated; F17.200 Nicotine dependence, unspecified, uncomplicated; F41.1 Generalized anxiety disorder; H54.7 Unspecified visual loss; K21.9 Gastro-esophageal reflux disease without esophagitis; Z51.5 Encounter for palliative care; Z66 Do not resuscitate; Z90.710 Acquired absence of both cervix and uterus; R01.1 Cardiac murmur, unspecified; Z88.8 Allergy status to other drugs, medicaments and biological substances; Z88.5 Allergy status to narcotic agent; Z90.49 Acquired absence of other specified parts of digestive tract
CPT/HCPCS: 36415; 36430; 36569; 49083; 71045; 74018; 80053; 81001; 82042; 82140; 82533; 83605; 83690; 84134; 84145; 85014; 85018; 85025; 85610; 85730; 86850; 86900; 86923; 87040; 87070; 87081; 87205; 89051; 93005; J1170; J3480; J3490; J7042; J1200; J2060; J7030; J7050; P9016